=== PATIENT | male | born 1945 | race Caucasian/White ===

== ENCOUNTER 2021-02-18 18:59 | Emergency (ER) | payer MEDICARE ==
[~2021-02-18] VITALS: Ht 175 cm; Wt 87.9 kg
--- NOTE | 2021-02-18 19:24 | ED Fall/Injury ---
General Stated Complaint: L SIDE RIB PAIN Source: patient (SOMEWHAT DIFFICULT HISTORIAN) History of Present Illness Date Seen by Provider: Feb 18, 2021 Time Seen by Provider: 19:07 Initial Comments PT ARRIVES VIA POV FROM HOME STATES HE WAS WALKING HIS DOG THIS AFTERNOON AND TRIPPED AND FELL, LANDING ON HIS LEFT SIDE--LANDED ON DIRT/GROUND OCCURRED AROUND 1400 TODAY C/O PAIN TO LEFT RIBS/ CHEST AREA DID HIT THE LEFT POSTERIOR ASPECT OF HIS HEAD DENIES LOSS OF CONSCIOUSNESS DENIES NECK OR BACK PAIN NO HEADACHE NO VISION CHANGES NO DIZZINESS NO PARESTHESIAS OR MOTOR DEFICITS NO SHORTNESS OF BREATH, BUT HURTS TO BREATHE--LEFT CHEST NO ABDOMINAL PAIN OR NAUSEA/VOMITING NO PAIN TO HIPS OR LEGS OR ARMS LAST TETANUS VACCINE IS UNKNOWN PT IS DIABETIC, BLOOD SUGAR WAS 137 EARLIER TODAY PT IS NOT ON ASPIRIN OR BLOOD THINNERS PCP: HÉCTOR, TOREY CROWDERCHIJoaquin Allergies and Home Medications Allergies Coded Allergies: No Allergy Information Available (Unverified , 02/18/21) Patient Home Medication List Home Medication List Reviewed: Yes Review of Systems Review of Systems Constitutional: no symptoms reported Eyes: No Symptoms Reported Ears, Nose, Mouth, Throat: no symptoms reported Respiratory: no symptoms reported Cardiovascular: see HPI, chest pain Gastrointestinal: no symptoms reported Genitourinary: no symptoms reported Musculoskeletal: see HPI Skin: no symptoms reported Psychiatric/Neurological: No Symptoms Reported; Denies Headache, Denies Numb ness, Denies Paresthesia, Denies Seizure, Denies Tingling, Denies Weakness Past Krezley-Uazkdc-Cfzmkj Hx Past Med/Social Hx: Reviewed and Corrections made Past Medical History Surgeries: Yes (LUMBAR SPINE; RIGHT KNEE REPL X 3; LEFT KNEE REPL X 1; BILATERAL WRIST SURG) Joint Replacement, Orthopedic Respiratory: No Cardiac: No Neurological: No Genitourinary: No Gastrointestinal: No Musculoskeletal: Yes (L SPINE SURG;LEFT KNEE REPL X1; R KNEE REPL X 3; BILAT WRIST SURGERY) Degenerate Disk Disease, Arthritis Endocrine: Yes Diabetes, 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 oz. kg; BMI Method: General Appearance: WD/WN, no apparent distress HEENT: PERRL/EOMI, normal ENT inspection, other (NO EXTERNAL EVIDENCE OF TRAUMA TO HEAD) Neck: non-tender, full range of motion, supple, normal inspection Cardiovascular: normal peripheral pulses, regular rate, rhythm, no JVD, no murmur Respiratory: normal breath sounds, no respiratory distress, no accessory muscle use, other (DIFFUSE LEFT ANTERIOR AND LATERAL CHEST WALL TENDERNESS, LOWER STERNAL TENDERNESS. NO CREPITANCE OR SUB Q AIR OR DEFORMITY) Gastrointestinal: normal bowel sounds, soft, no organomegaly, no pulsatile mass, tenderness (LEFT UPPER QUADRANT AND LEFT FLANK) Back: CVA tenderness (L); No vertebral tenderness Extremities: other (LEFT SHOULDER TENDERNESS. FULL ROM. NO HIP OR LEG TENDERNESS. HAS MINOR ABRASION TO LATERAL ASPECT OF LEFT KNEE. 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 ) Skin: normal color, warm/dry Jena Coma Score Best Eye Response: (4) Open Spontaneously Best Verbal Response: (5) Oriented Best Motor Response: (6) Obeys Commands Jena Total: 15 Progress/Results/Core Measures Results/Orders Lab Results Laboratory Tests Test 02/18/21 19:20 02/18/21 21:15 Range/Units White Blood Count 8.7 4.3-11.0 10^3/uL Red Blood Count 4.59 4.30-5.52 10^6/uL Hemoglobin 14.2 13.3-17.7 g/dL Hematocrit 44 40-54 % Mean Corpuscular Volume 96 80-99 fL Mean Corpuscular Hemoglobin 31 25-34 pg Mean Corpuscular Hemoglobin Concent 32 32-36 g/dL Red Cell Distribution Width 12.5 10.0-14.5 % Platelet Count 203 130-400 10^3/uL Mean Platelet Volume 8.4 L 9.0-12.2 fL Immature Granulocyte % (Auto) 0 % Neutrophils (%) (Auto) 75 42-75 % Lymphocytes (%) (Auto) 15 12-44 % Monocytes (%) (Auto) 7 0-12 % Eosinophils (%) (Auto) 3 0-10 % Basophils (%) (Auto) 1 0-10 % Neutrophils # (Auto) 6.5 1.8-7.8 10^3/uL Lymphocytes # (Auto) 1.3 1.0-4.0 10^3/uL Monocytes # (Auto) 0.6 0.0-1.0 10^3/uL Eosinophils # (Auto) 0.2 0.0-0.3 10^3/uL Basophils # (Auto) 0.0 0.0-0.1 10^3/uL Immature Granulocyte # (Auto) 0.0 0.0-0.1 10^3/uL Prothrombin Time 12.7 12.2-14.7 SEC INR Comment 0.9 0.8-1.4 Activated Partial Thromboplast Time 29 24-35 SEC Sodium Level 140 135-145 MMOL/L Potassium Level 3.6 3.6-5.0 MMOL/L Chloride Level 101 98-107 MMOL/L Carbon Dioxide Level 25 21-32 MMOL/L Anion Gap 14 5-14 MMOL/L Blood Urea Nitrogen 16 7-18 MG/DL Creatinine 1.30 0.60-1.30 MG/DL Estimat Glomerular Filtration Rate 54 BUN/Creatinine Ratio 12 Glucose Level 200 H 70-105 MG/DL Calcium Level 9.8 8.5-10.1 MG/DL Corrected Calcium 8.5-10.1 MG/DL Magnesium Level 2.1 1.6-2.4 MG/DL Total Bilirubin 0.4 0.1-1.0 MG/DL Aspartate Amino Transf (AST/SGOT) 16 5-34 U/L Alanine Aminotransferase (ALT/SGPT) 17 0-55 U/L Alkaline Phosphatase 66 40-136 U/L Total Creatine Kinase 66 30-200 U/L Creatine Kinase MB 0.7 <6.6 NG/ML Myoglobin 48.6 10.0-92.0 NG/ML Troponin I < 0.028 <0.028 NG/ML Total Protein 8.0 6.4-8.2 GM/DL Albumin 4.7 H 3.2-4.5 GM/DL Amylase Level 46 25-125 U/L Lipase 53 8-78 U/L Urine Color YELLOW Urine Clarity CLEAR Urine pH 5.5 5-9 Urine Specific [place] 1.015 L 1.016-1.022 Urine Protein NEGATIVE NEGATIVE Urine Glucose (UA) NEGATIVE NEGATIVE Urine Ketones NEGATIVE NEGATIVE Urine Nitrite NEGATIVE NEGATIVE Urine Bilirubin NEGATIVE NEGATIVE Urine Urobilinogen 1.0 < = 1.0 MG/DL Urine Leukocyte Esterase NEGATIVE NEGATIVE Urine RBC (Auto) NEGATIVE NEGATIVE Urine RBC NONE /HPF Urine WBC NONE /HPF Urine Squamous Epithelial Cells 0-2 /HPF Urine Crystals NONE /LPF Urine Bacteria TRACE /HPF Urine Casts NONE /LPF Urine Mucus NEGATIVE /LPF Urine Culture Indicated NO My Orders Orders - RUSTAM CAMACHO DO Ed Iv/Invasive Line Start (02/18/21 19:11) Monitor-Rhythm Ecg Trace Only (02/18/21 19:11) Ct Head/Cervical Spine Wo (02/18/21 19:11) Chest 1 View, Ap/Pa Only (02/18/21:11) Shoulder, Left, 3 Views (02/18/21:11) Pelvis (02/18/21:11) Amylase (02/18/21:11) Cbc With Automated Diff (02/18/21:11) Comprehensive Metabolic Panel (02/18/21:) Lipase (02/18/21:11) Protime With Inr (02/18/21:11) Partial Thromboplastin Time (02/18/21 19:11) Ua Culture If Indicated (02/18/21 19:11) Ct Chest/Abdomen/Pelvis W (02/18/21 19:11) Ekg Tracing (02/18/21 19:25) Creatine Kinase (02/18/21 19:25) Creatine Kinase Mb (02/18/21 19:25) Magnesium (02/18/21 19:25) Myoglobin Serum (02/18/21 19:25) Troponin I (02/18/21 19:25) Iohexol Injection (Omnipaque 350 Mg/Ml 1 (02/18/21 20:15) Received Contrast (Hold Metformin- Contr (02/18/21 20:15) Sodium Chloride Flush (Catheter Flush Sy (02/18/21 20:15) Ns (Ivpb) (Sodium Chloride 0.9% Ivpb Bag (02/18/21 20:15) Rx-Tramadol Hcl (Rx-Ultram) (02/18/21 22:11) Medications Given in ED Current Medications Medications Dose Ordered Sig/Dennis Route Start Time Stop Time Status Last Admin Dose Admin Iohexol 100 ml ONCE ONCE IV 02/18/21 20:15 02/18/21 20:16 DC 02/18/21 20:56 100 ML Sodium Chloride 10 ml NEEDED PRN IV 02/18/21 20:15 02/18/21 22:19 DC 02/18/21 20:56 10 ML Sodium Chloride 100 ml ONCE ONCE IV 02/18/21 20:15 02/18/21 20:16 DC 02/18/21 20:56 80 ML Vital Signs/I&O 02/18/21 02/18/21 02/18/21 19:07 19:07 22:15 Temp 36.8 36.8 36.8 Pulse 70 70 62 Resp 16 16 16 B/P (MAP) 152/78 (102) 152/78 (102) 110/65 (102) Pulse Ox 97 98 O2 Delivery Room Air Room Air Room Air Progress Progress Note : Progress Note UNEVENTFUL ER STAY NO COMPLAINTS DURING ER STAY, AND DECLINES ANY PAIN MEDICATIONS--WILL SEND HOME WITH TAKE HOME PACK OF TRAMADOL, BUT PT DECLINES A PRESCRIPTION FOR ANY PAIN MEDICATION. STATES HE WILL TAKE TYLENOL AMBULATES OUT OF ER ON HIS OWN Initial ECG Impression Date: Feb 18, 2021 Initial ECG Impression Time: 18:35 Initial ECG Rate: 58 Initial ECG Rhythm: Normal Sinus (ARTIFACT) Initial ECG Comparisson: No Previous ECG Available Diagnostic Imaging Comments CT SCANS--PER RADIOLOGIST REPORTS AT 2134: HEAD/CERVICAL SPINE-- CT HEAD: Ventricles and sulci are within normal limits for size. There are several regions of decreased attenuation in the deep white matter. This is most pronounced in the right parieto-occipital region. No hemorrhage is identified. There is no abnormal mass effect or shift of midline structures. Low density within the deep white matter of the cerebral hemispheres is most pronounced posteriorly on the right. This may reflect areas of encephalomalacia from previous insult. If older studies could be obtained, comparison would be useful. Otherwise clinical correlation and possible follow-up may be of use. CT CERVICAL SPINE: Multiple contiguous axial CT images of the cervical spine were obtained with sagittal and coronal reformatted images produced. All CT scans use one or more of the following dose optimizing techniques: automated exposure control, MA and/or KvP adjustment based on patient size and exam type or iterative reconstruction. The cervical curvature and alignment are within normal limits. The vertebral body heights and disc spaces are maintained without evidence of fracture or subluxation. There is no paraspinous hematoma. Mild degenerative findings are seen in the cervical disc spaces and facet joints. IMPRESSION: No CT evidence of acute cervical spinal abnormality. CHEST/ABDOMEN/PELVIS-- CT CHEST: Lungs are clear and well expanded. There is no pneumothorax or pleural fluid. No mediastinal hematoma is identified. There are coronary artery calcifications. No rib or sternal fracture is seen. Great vessels are unremarkable. There is mild diffuse thoracic spondylosis. IMPRESSION: No CT evidence of acute abnormality in the thorax. CT ABDOMEN/PELVIS: No focal hepatic or splenic lesion is identified. There is small hiatal hernia. There is no evidence of pancreatic or adrenal gland lesion. Kidneys reveal no acute abnormality. There is no hydronephrosis. No free fluid is seen within the abdomen or pelvis. Partially opacified urinary bladder is unremarkable without evidence of perivesicular contrast extravasation. No pelvic fracture is identified. There is lumbar spondylosis without CT evidence of acute lumbar spinal abnormality. IMPRESSION: No CT evidence of acute abnormality within the abdomen or pelvis. XRAYS--PER RADIOLOGIST REPORTS AT 2215 AND 2200 CXR--Heart size and pulmonary vasculature are within normal limits and the lungs are clear, bilaterally. IMPRESSION: Unremarkable chest. LEFT SHOULDER-No acute fracture or dislocation is identified. No abnormal lytic or sclerotic focus is seen and there is no radiopaque foreign body. IMPRESSION: No acute abnormality. PELVIS-- Mild degenerative spurring is noted about the hip joints. Urinary tract is opacified with contrast. No acute fracture or dislocation is identified. No abnormal lytic or sclerotic focus is seen and there is no radiopaque foreign body. IMPRESSION: No acute abnormality. Reviewed: Reviewed by Me Departure Impression Primary Impression: S/P FALL FROM STANDING Additional Impressions: Contusion of left chest wall Contusion of left shoulder LEFT FLANK CONTUSION Minor head injury without loss of consciousness Disposition: 01 HOME, SELF-CARE Condition: Stable Departure-Patient Inst. Referrals: [facility] (PCP) Primary Care Physician MICH BLACK (Family) Primary Care Physician Patient Instructions: CHEST CONTUSION, Closed Head Injury (DC), Contusion (DC), Preventing Falls in the Older Adult, RIB CONTUSION Add. Discharge Instructions: ICE TO SORE AREAS AT 20 MINUTE INTERVALS TYLENOL NEEDED FOR PAIN RUSTAM CAMACHO DO Feb 18, 2021 19:24
[2021-02-18 19:27] LABS: BASOPHILS % (AUTO) 1 % (0-10); EOSINOPHILS # (AUTO) 0.2 10^3/uL (0.0-0.3); EOSINOPHILS % (AUTO) 3 % (0-10); HEMATOCRIT 44 % (40-54); HEMOGLOBIN 14.2 g/dL (13.3-17.7); LYMPHOCYTES # (AUTO) 1.3 10^3/uL (1.0-4.0); LYMPHOCYTES % (AUTO) 15 % (12-44); MEAN CORPUSCULAR HEMOGLOBIN 31 pg (25-34); MEAN CORPUSCULAR HGB CONC 32 g/dL (32-36); MEAN CORPUSCULAR VOLUME 96 fL (80-99); MEAN PLATELET VOLUME 8.4 fL (9.0-12.2); MONOCYTES # (AUTO) 0.6 10^3/uL (0.0-1.0); MONOCYTES % (AUTO) 7 % (0-12); NEUTROPHILS # (AUTO) 6.5 10^3/uL (1.8-7.8); NEUTROPHILS % (AUTO) 75 % (42-75); PLATELET COUNT 203 10^3/uL (130-400); WHITE BLOOD COUNT 8.7 10^3/uL (4.3-11.0)
[2021-02-18 19:50] LABS: INR 0.9 (0.8-1.4); PROTHROMBIN TIME PATIENT 12.7 SEC (12.2-14.7)
[2021-02-18 19:58] LABS: ALANINE AMINOTRANSFERASE 17 U/L (0-55); ALBUMIN 4.7 GM/DL (3.2-4.5); ALKALINE PHOSPHATASE 66 U/L (40-136); AMYLASE 46 U/L (25-125); BILIRUBIN,TOTAL 0.4 MG/DL (0.1-1.0); BUN/CREATININE RATIO 12; CALCIUM 9.8 MG/DL (8.5-10.1); CARBON DIOXIDE 25 MMOL/L (21-32); CHLORIDE 101 MMOL/L (98-107); GFR ESTIMATED 54; GLUCOSE 200 MG/DL (70-105); LIPASE 53 U/L (8-78); POTASSIUM 3.6 MMOL/L (3.6-5.0); SODIUM 140 MMOL/L (135-145)
[2021-02-18 19:59] LABS: CREATINE KINASE 66 U/L (30-200); MAGNESIUM 2.1 MG/DL (1.6-2.4)
[2021-02-18 20:08] LABS: CREATINE KINASE MB 0.7 NG/ML (<6.6)
[2021-02-18] MEDS ORDERED: HOLD METFORMIN - RECEIVED CONTRAST 20 ML VIAL IV SCH (20:15)
[2021-02-18] MEDS ORDERED: NS 100 ML (IVPB) BAG IV ONE (20:15)
[2021-02-18] MEDS ORDERED: CATHETER FLUSH 10 ML SYR IV PRN (20:15)
[2021-02-18] MEDS ORDERED: IOHEXOL 350 MG/ML 100 ML (OMNIPAQUE 350) VIAL IV ONE (20:15)
--- NOTE | 2021-02-18 21:16 | Diagnostic Imaging Report ---
INDICATION: Left shoulder pain. EXAMINATION: AP, oblique and transscapular views of the left shoulder were obtained. No acute fracture or dislocation is identified. No abnormal lytic or sclerotic focus is seen and there is no radiopaque foreign body. IMPRESSION: No acute abnormality. Dictated by: Dictated on workstation # [id number]
--- NOTE | 2021-02-18 21:18 | Diagnostic Imaging Report ---
PROCEDURE: CT head and CT cervical spine without contrast. TECHNIQUE: Multiple contiguous axial images were obtained through the brain and cervical spine without the use of intravenous contrast. Sagittal and coronal reformations through the cervical spine were then performed. Auto Exposure Controls were utilized during the CT exam to meet ALARA standards for radiation dose reduction. INDICATION: Head and neck pain after injury. CT HEAD: Ventricles and sulci are within normal limits for size. There are several regions of decreased attenuation in the deep white matter. This is most pronounced in the right parieto-occipital region. No hemorrhage is identified. There is no abnormal mass effect or shift of midline structures. Low density within the deep white matter of the cerebral hemispheres is most pronounced posteriorly on the right. This may reflect areas of encephalomalacia from previous insult. If older studies could be obtained, comparison would be useful. Otherwise clinical correlation and possible follow-up may be of use. CT CERVICAL SPINE: Multiple contiguous axial CT images of the cervical spine were obtained with sagittal and coronal reformatted images produced. All CT scans use one or more of the following dose optimizing techniques: automated exposure control, MA and/or KvP adjustment based on patient size and exam type or iterative reconstruction. The cervical curvature and alignment are within normal limits. The vertebral body heights and disc spaces are maintained without evidence of fracture or subluxation. There is no paraspinous hematoma. Mild degenerative findings are seen in the cervical disc spaces and facet joints. IMPRESSION: No CT evidence of acute cervical spinal abnormality. Dictated by: Dictated on workstation # [id number]
--- NOTE | 2021-02-18 21:20 | Diagnostic Imaging Report ---
PROCEDURE: CT chest, abdomen and pelvis with contrast. TECHNIQUE: Multiple contiguous axial images were obtained through the chest, abdomen and pelvis after the administration of intravenous contrast. Auto Exposure Controls were utilized during the CT exam to meet ALARA standards for radiation dose reduction. INDICATION: Trauma. CT CHEST: Lungs are clear and well expanded. There is no pneumothorax or pleural fluid. No mediastinal hematoma is identified. There are coronary artery calcifications. No rib or sternal fracture is seen. Great vessels are unremarkable. There is mild diffuse thoracic spondylosis. IMPRESSION: No CT evidence of acute abnormality in the thorax. CT ABDOMEN/PELVIS: No focal hepatic or splenic lesion is identified. There is small hiatal hernia. There is no evidence of pancreatic or adrenal gland lesion. Kidneys reveal no acute abnormality. There is no hydronephrosis. No free fluid is seen within the abdomen or pelvis. Partially opacified urinary bladder is unremarkable without evidence of perivesicular contrast extravasation. No pelvic fracture is identified. There is lumbar spondylosis without CT evidence of acute lumbar spinal abnormality. IMPRESSION: No CT evidence of acute abnormality within the abdomen or pelvis. Dictated by: Dictated on workstation # [id number]
[2021-02-18 21:24] LABS: BILIRUBIN,URINE NEGATIVE (NEGATIVE); CLARITY,URINE CLEAR; COLOR,URINE YELLOW; GLUCOSE, URINE (UA) NEGATIVE (NEGATIVE); KETONES,URINE NEGATIVE (NEGATIVE); LEUKOCYTE ESTERASE ,URINE NEGATIVE (NEGATIVE); NITRITE,URINE NEGATIVE (NEGATIVE); PH,URINE 5.5 (5-9); PROTEIN,URINE NEGATIVE (NEGATIVE)
[2021-02-18 21:27] LABS: BACTERIA,URINE TRACE /HPF; SQUAMOUS EPITHELIAL CELL,UR 0-2 /HPF
--- NOTE | 2021-02-18 21:47 | Diagnostic Imaging Report ---
INDICATION: Fall with pelvic pain. EXAMINATION: AP view of the pelvis was obtained. Mild degenerative spurring is noted about the hip joints. Urinary tract is opacified with contrast. No acute fracture or dislocation is identified. No abnormal lytic or sclerotic focus is seen and there is no radiopaque foreign body. IMPRESSION: No acute abnormality. Dictated by: Dictated on workstation # [id number]
--- NOTE | 2021-02-18 21:58 | Diagnostic Imaging Report ---
INDICATION: Fall with chest pain. EXAMINATION: Single AP view of the chest was obtained. COMPARISON: No previous study is available for comparison at this time. Heart size and pulmonary vasculature are within normal limits and the lungs are clear, bilaterally. IMPRESSION: Unremarkable chest. Dictated by: Dictated on workstation # [id number]
[2021-02-18] MEDS ORDERED: RX-TRAMADOL 50 MG (ULTRAM) TAB PPK#4 PO STA (22:11)
[2021-02-18 22:15] VITALS: BP 110/65
== END 2021-02-18 22:19 | disposition home or self-care (01) ==
LOC: ER 19:02
DX: S20.212A Contusion of left front wall of thorax, initial encounter (principal); S40.012A Contusion of left shoulder, initial encounter; S30.1XXA Contusion of abdominal wall, initial encounter; S09.90XA Unspecified injury of head, initial encounter; S80.212A Abrasion, left knee, initial encounter; E11.9 Type 2 diabetes mellitus without complications; W01.0XXA Fall on same level from slipping, tripping and stumbling without subsequent striking against object, initial encounter
CPT/HCPCS: 36415; 70450; 71045; 71260; 72125; 72170; 73030; 74177; 80053; 81000; 82150; 82550; 82553; 83690; 83735; 83874; 84484; 85025; 85610; 85730; 93005; 93041

== ENCOUNTER → 2021-09-17 | Outpatient (CLI) | payer MEDICARE ==
--- NOTE | 2021-09-17 13:37 | Diagnostic Imaging Report ---
Clinical indication: Patient is having memory loss problems. Exam: MRI of the brain performed without IV contrast. Sequences include axial DWI, ADC map, axial gradient echo, axial T2, axial FLAIR, axial T1, and sagittal T1. Comparison: Head CT without contrast dated 02/18/2021. Findings: There is no evidence of acute cerebral infarct, intracranial hemorrhage, or gross mass effect. The brain parenchymal volume appears appropriate for patient's age. There are focal and patchy areas of high T2 signal white matter changes involving both cerebral hemispheres and periventricular regions. There are also patchy areas of high T2 signal involving the bilateral parietal lobe peritrigonal regions and right parietal lobe, which is noted also on the prior head CT. These findings are likely related to chronic ischemic changes. There is normal loja-white matter distinction. There is no significant midline shift or herniation. There is no evidence of hydrocephalus. The basal cisterns are unremarkable. The skull, extracranial soft tissue, and orbits are unremarkable. The paranasal sinuses are unremarkable. Temporal bones show no significant abnormality. IMPRESSION: 1: There is no evidence of acute intracranial process. 2: There is brain parenchymal volume loss, chronic small vessel ischemic disease and leukoaraiosis. 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 Dictated by: Dictated on workstation # [id number]
== END ==
LOC: RAD 09:30
PROVIDERS: ATTEND Psychiatry & Neurology Neurology
DX: I67.81 Acute cerebrovascular insufficiency (principal); I67.82 Cerebral ischemia
CPT/HCPCS: 70551

== ENCOUNTER → 2022-06-21 | Outpatient (CLI) | payer MEDICARE ==
--- NOTE | 2022-06-21 12:55 | Diagnostic Imaging Report ---
INDICATION: Postmenopausal screening COMPARISON: Baseline FINDINGS: AP Spine L1-L4: [BMD (g/cm2): 0.930] [T-Score: -2.6] [Z-Score: -2.0] [BMD Previous: N/A] [BMD % Change: N/A] LT Hip Neck: [BMD (g/cm2): 0.598] [T-Score: -3.6] [Z-Score: -2.2] LT Hip Total: [BMD (g/cm2):0.607] [T-Score:-3.4] [Z-Score: -2.5] [BMD Previous: N/A] [BMD % Change: N/A] RT Hip Neck: [BMD (g/cm2):0.611] [T-Score:-3.5] [Z-Score:-2.1] RT Hip Total: [BMD (g/cm2):0.580] [T-score:-3.6] [Z-Score:-2.7] [BMD Previous:N/A] [BMD % Change:N/A] *Indicates significant change from prior examination based on 95% confidence level. World Health Organization criteria for BMD interpretation classify patients as Normal (T-score at or above -1.0), Osteopenic (T-score between -1.0 and -2.5) or Osteoporotic (T-score at or below -2.5). LIMITATIONS AND MODIFICATION: None. FRACTURE RISK (FRAX SCORE): The ten year probability of (%): Major Osteoporotic Fracture: [15.8] Hip Fracture: [8.5] IMPRESSION: 1. Osteoporosis. 2. Baseline examination. 3. See below National Osteoporosis Foundation guidelines on when to potentially initiate pharmacologic therapy. Based on the National Osteoporosis Foundation Guidelines, pharmacologic treatment should be initiated in any of the following, unless clinical conditions suggest otherwise: * Any patient with prior fragility fracture of the hip or vertebrae. A spine fracture indicates 5X risk for subsequent spine fracture and 2X risk for subsequent hip fracture. * Osteoporosis (T-score <-2.5). * Postmenopausal women and men age 50 and older with low bone mass/osteopenia (T-score between -1.0 and -2.5) by DXA and 10-year major osteoporotic fracture greater than 20% or a 10-year probability of hip fracture greater than 3%. These fracture risks are supplied above in the FRAX score, if applicable. * Clinician judgement and/or patient preferences may indicate treatment for people with 10-year fracture probabilities above or below these levels. Dictated by: Dictated on workstation # [id number]
== END ==
LOC: RAD 10:20
PROVIDERS: ATTEND Physician Assistant
DX: Z13.820 Encounter for screening for osteoporosis (principal); M81.0 Age-related osteoporosis without current pathological fracture
CPT/HCPCS: 77080